=== PATIENT | female | born 1950 | race Hispanic/Latino ===

== ENCOUNTER 2018-12-12 17:10 | Emergency (ER) | payer MEDICARE ==
[~2018-12-12] VITALS: Ht 154.9 cm; Wt 98.9 kg
--- OUTSIDE RECORDS SUMMARY | 2018-12-12 17:12 | XMS REPORT ---
Author Author [facility] Address Unknown Phone Unavailable Care Team Providers Care Director Oncology Name Role Phone Unavailable Unavailable Problems This patient has no known problems. Allergies, Adverse Reactions, Alerts This patient has no known allergies or adverse reactions. Medications This patient has no known medications. Encounters Start Date/Time End Date/Time Encounter Type Admission Type Attending [facility] [place] Facility Care Department Encounter ID 2018-01-07 00:00:00 2018-01-07 00:00:00 Outpatient [facility] [id number] 2017-12-24 00:00:00 2017-12-24 00:00:00 Outpatient [facility] [id number] 2017-12-24 00:00:00 2017-12-24 00:00:00 Outpatient [facility] [id number] 2017-12-01 00:00:00 2017-12-01 00:00:00 Outpatient [facility] [id number] 2017-10-12 10:56:28 2017-10-12 10:56:28 Outpatient [facility] [id number] 2017-10-08 00:00:00 2017-10-08 00:00:00 Outpatient [facility] [id number] 2017-08-27 00:00:00 2017-08-27 00:00:00 Outpatient [facility] [id number] 2017-08-13 13:26:11 2017-08-13 13:26:11 Outpatient [facility] [id number] 2017-07-15 00:00:00 2017-07-15 00:00:00 Outpatient [facility] [id number] 2017-06-30 00:00:00 2017-06-30 00:00:00 Outpatient [facility] [id number] 2017-06-12 09:45:23 2017-06-12 09:45:23 Outpatient [facility] [id number] 2017-06-10 00:00:00 2017-06-10 00:00:00 Outpatient [facility] [id number] 2017-05-20 00:00:00 2017-05-20 00:00:00 Outpatient [facility] [id number] 2017-05-19 00:00:00 2017-05-19 00:00:00 Outpatient [facility] [id number] 2017-05-13 08:43:56 2017-05-13 08:43:56 Outpatient [facility] [id number] 2017-05-13 00:00:00 2017-05-13 00:00:00 Outpatient [facility] [id number] 2017-05-12 10:38:57 2017-05-12 10:38:57 Outpatient [facility] [id number]
[2018-12-12] MEDS ORDERED: ALBUTEROL SULF 0.083% NEB SOLN 3 ML NEB NEB STA (17:34)
[2018-12-12] MEDS ORDERED: IPRATROPIUM BROMIDE 0.02% 2.5 ML NEB NEB STA (17:34)
[2018-12-12] MEDS ORDERED: ACETAMINOPHEN/CODEINE ELIX 120-12 MG/5 ML UDC PO NR (17:45)
[2018-12-12] MEDS ORDERED: DEXAMETHASONE SOD PHOS 10 MG/1 ML VIAL IM NR (18:30)
--- NOTE | 2018-12-12 19:00 | NUR ---
REPORT GIVEN TO LYLY CUMMINGS
--- NOTE | 2018-12-12 19:04 | Diagnostic Imaging Report ---
EXAMINATION: CHEST 2 VIEWS INDICATION: ^ORDER PLACED BY ^[id number] ^[id number] ^Y COMPARISON: None FINDINGS: PA and lateral views TUBES and LINES: None. LUNGS: Lungs are well inflated. Lungs are clear. There is no evidence of pneumonia or pulmonary edema. PLEURA: No pleural effusion or pneumothorax. HEART AND MEDIASTINUM: The cardiomediastinal silhouette is unremarkable. BONES AND SOFT TISSUES: Degenerative changes of the thoracic spine. Soft tissues are unremarkable. UPPER ABDOMEN: No free air under the diaphragm. IMPRESSION: No acute thoracic abnormality. Signed by: Dr. Rosario Mcguire M.D. on 12/12/2018 7:00 PM
== END 2018-12-12 19:42 | disposition home or self-care (01) ==
LOC: ER 17:10
DX: R05 Cough (principal); J20.9 Acute bronchitis, unspecified
CPT/HCPCS: 71046; 94644; 99284; J1100

== ENCOUNTER → 2019-01-19 | Outpatient (CLI) | payer MEDICARE | LOC: MAMMO 12:12 | PROVIDERS: ATTEND Student in an Organized Health Care Education/Training Program | DX: Z12.31 Encounter for screening mammogram for malignant neoplasm of breast (principal) | CPT/HCPCS: 77067 ==

== ENCOUNTER 2020-05-01 13:00 | Emergency (ER) | payer MEDICARE ==
[~2020-05-01] VITALS: Ht 154.9 cm; Wt 98.9 kg
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
--- NOTE | 2020-05-01 13:32 | Emergency Department Note ---
History of Present Illnes History of Present Illness Chief Complaint: General Medicine Complaints History of Present Illness This is a 70 year old female Chief Complaint Comment 70 y/o female presents to ED with c/o trip and fall hitting forehead. Negative LOC. Historian: Patient Arrival Mode: Car Senior Compensation Consultant Required: No Onset (how long ago): minute(s) (30) Location: Head Quality: Dull Radiation: Reports non-radiation Severity: mild Onset quality: sudden Duration (how long): hour(s) Timing of current episode: constant Progression: unchanged Chronicity: new Context: Denies recent illness, Denies recent surgery Relieving factors: none Exacerbating factors: none Associated symptoms: Reports denies other symptoms Treatments prior to arrival: none Past Medical/Family History Physician Review I have reviewed the patient's past medical and family history. Any updates have been documented here. Past Medical History Recent Fever: No Clinical Suspicion of Infectio: No New/Unexplained Change in Ment: No Past Medical History: Hypertension, Diabetes, Depression, Osteoarthritis Past Surgical History: None Social History Physically hurt or threatened: No Other Last Tetanus: UTD Review of Systems Review of Systems Constitutional: Reports as per HPI (Swelling to L forehead) EENTM: Reports no symptoms Cardiovascular: Reports no symptoms Respiratory: Reports no symptoms Gastrointestinal: Reports no symptoms Genitourinary: Reports no symptoms Musculoskeletal: Reports no symptoms Integumentary: Reports no symptoms Neurological: Reports no symptoms Psychological: Reports no symptoms Endocrine: Reports no symptoms Hematological/Lymphatic: Reports no symptoms Physical Exam Related Data Allergies: Coded Allergies: No Known Allergies (Unverified , 12/12/18) Triage Vital Signs Vital Signs Date Time Temp Pulse Resp B/P (MAP) Pulse Ox O2 Delivery O2 Flow Rate FiO2 05/01/20 13:17 98.6 73 18 154/84 98 Room Air Vital signs reviewed: Yes Physical Exam CONSTITUTIONAL Constitutional: Present well-developed, Present well-nourished HENT HENT: Present oropharynx clear/moist, Present nose normal; Absent atraumatic (Sweling to L forehead) HENT L/R: Present left ext ear normal, Present right ext ear normal EYES Eyes: Reports PERRL, Reports conjunctivae normal NECK Neck: Present ROM normal PULMONARY Pulmonary: Present effort normal, Present breath sounds normal CARDIOVASCULAR Cardiovascular: Present regular rhythm, Present heart sounds normal, Present capillary refill normal, Present normal rate GASTROINTESTINAL Abdominal: Present soft, Present nontender, Present bowel sounds normal GENITOURINARY Genitourinary: Present exam deferred SKIN Skin: Present warm, Present dry MUSCULOSKELETAL Musculoskeletal: Present ROM normal, Present other (abrasions to bilateral knees) NEUROLOGICAL Neurological: Present alert, Present oriented x 3, Present no gross motor or sensory deficits PSYCHOLOGICAL Psychological: Present mood/affect normal, Present judgement normal Results Imaging Imaging results reviewed: Yes Assessment & Plan Medical Decision Making MDM 70-year-old female presents for head injury. Patient was walking out of the hospital after a mammogram and had a mechanical fall in which she fell onto her bilateral knees and hit her head. Denies loss of consciousness. Examination shows moderate swelling to the left forehead. She was able to ambulate after the incident. CT head, C-spine and x-rays of the bilateral knees are unremarkable. I discussed results patient and she will follow up with her primary care provider or return to the emergency department for new or worsening symptoms. Patient is appropriate for discharge. tetanus updated. Reassessment Reassessment time: 13:31 Reassessment Well appearing, NAD Assessment & Plan Final Impression: (1) Head injury Depart Disposition: HOME, SELF-CARE Last Vital Signs Date Time Temp Pulse Resp B/P (MAP) Pulse Ox O2 Delivery O2 Flow Rate FiO2 05/01/20 13:17 98.6 73 18 154/84 98 Room Air JULIANA OSMAN MD May 01, 2020 13:32
--- NOTE | 2020-05-01 13:50 | Diagnostic Imaging Report ---
Examination: CT BRAIN WO CONTRAST History:Fall with head injury Comparison studies:None Technique: Axial images were obtained from the skull base to the vertex. Coronal and sagittal images reconstructed from the axial data. Dose modulation, iterative reconstruction, and/or weight based adjustment of the mA/kV was utilized to reduce the radiation dose to as low as reasonably achievable. Intravenous contrast: None Findings: Scalp: Left frontal scalp hematoma. Bones: No fractures, blastic or lytic lesions. Brain sulci: Appropriate for age. Ventricles: Normal in size and configuration. No hydrocephalus. Extra-axial space: No abnormalities. Parenchyma: No masses, hemorrhage, or acute or chronic cortical based vascular insults.. Sellar/suprasellar region: No abnormalities. Craniocervical junction: Patent foramen magnum. No Chiari one malformation. Incidental findings: None. Impression: Despite left frontal scalp hematoma, no underlying calvarial fracture or intracranial hemorrhage. Signed by: Dr. Sapna Hager M.D. on 05/01/2020 2:04 PM
--- NOTE | 2020-05-01 13:56 | Diagnostic Imaging Report ---
Examination: CT CERVICAL SPINE WO CONTRAST HISTORY:Fall with head injury COMPARISON:None. TECHNIQUE: Multidetector helical axial images were obtained without contrast from the foramen magnum to T1. Coronal and sagittal reformatted images were done. Bone and soft tissue windows were evaluated. Dose modulation, iterative reconstruction, and/or weight based adjustment of the mA/kV was utilized to reduce the radiation dose to as low as reasonably achievable. FINDINGS: Alignment:Normal alignment and lordosis. Vertebrae: Normal height and density. No acute fracture, infection or neoplasm. Disc space heights: Normal height. Caliber of spinal canal: Developmentally normal. Posterior fossa and craniocervical junction: Foramen magnum patent. No Chiari 1 malformation. Soft tissues: Atherosclerotic calcification of the bilateral carotid bifurcations. Degenerative changes: C3-C4: Central disc osteophyte protrusion causes mild canal stenosis. No foraminal stenosis. C4-C5: Diffuse disc osteophyte complex. No foraminal or canal stenosis. C5-C6: Diffuse disc osteophyte complex and bilateral uncovertebral arthropathy result in mild bilateral neural foraminal narrowing. No canal stenosis. C6-C7: Diffuse disc osteophyte complex and bilateral uncovertebral arthropathy result in severe bilateral neural foraminal narrowing and mild canal stenosis. Visualized lung apices: No abnormalities. IMPRESSION: No acute abnormalities. Signed by: Dr. Sapna Hager M.D. on 05/01/2020 1:53 PM
--- NOTE | 2020-05-01 14:01 | Diagnostic Imaging Report ---
EXAMINATION: KNEE THREE VIEWS BILATERAL INDICATION: Knee pain, fall COMPARISON: None FINDINGS: AP, lateral and oblique radiographs of both knees were obtained. Right knee: No acute fracture or dislocation. Alignment is anatomic. Moderate to severe patellofemoral compartment predominant tricompartmental degenerative changes with joint space narrowing and bulky osteophyte formation. No substantial joint effusion. Atherosclerotic arterial calcifications. Left knee: No acute fracture or dislocation. Alignment is anatomic. Severe patellofemoral compartment predominant tricompartmental degenerative changes with joint space narrowing and bulky osteophyte formation. No substantial joint effusion. Atherosclerotic arterial calcifications. IMPRESSION: No acute osseous injury. Moderate to severe right and severe left patellofemoral compartment predominant degenerative changes. Signed by: Chris Crain MD on 05/01/2020 1:58 PM
[2020-05-01] MEDS ORDERED: TETANUS/DIPHTHERIA TOX ADULT 0.5 ML SYR IM ONE (14:15)
[2020-05-01] MEDS ORDERED: ACETAMINOPHEN 325 MG TAB PO ONE (14:15)
[2020-05-01 14:54] VITALS: BP 146/98
== END 2020-05-01 15:05 | disposition home or self-care (01) ==
LOC: ER 13:23
DX: S00.83XA Contusion of other part of head, initial encounter (principal); M25.562 Pain in left knee; M25.561 Pain in right knee; W01.0XXA Fall on same level from slipping, tripping and stumbling without subsequent striking against object, initial encounter; Y93.01 Activity, walking, marching and hiking; Y92.238 Other place in hospital as the place of occurrence of the external cause; I10 Essential (primary) hypertension; E11.9 Type 2 diabetes mellitus without complications; F32.9 Major depressive disorder, single episode, unspecified
CPT/HCPCS: 70450; 72125; 90714; 99284

== ENCOUNTER → 2020-05-01 | Outpatient (CLI) | payer MEDICARE | LOC: MAMMO 12:04 | PROVIDERS: ATTEND Student in an Organized Health Care Education/Training Program | DX: Z12.31 Encounter for screening mammogram for malignant neoplasm of breast (principal) | CPT/HCPCS: 77067 ==

== ENCOUNTER 2021-01-11 07:46 | Emergency (ER) | payer MEDICARE ==
[~2021-01-11] VITALS: Ht 160 cm; Wt 117.9 kg
[2021-01-11] MEDS ORDERED: METOPROLOL SUCC50 MG PO (08:27)
[2021-01-11] MEDS ORDERED: LANSOPRAZOLE30 MG (08:27)
[2021-01-11] MEDS ORDERED: LOSARTAN-HCTZ1 EAC2 (08:27)
[2021-01-11] MEDS ORDERED: FAMOTIDINE 20 MG/2 ML VIAL IV STA (08:32)
[2021-01-11] MEDS ORDERED: ONDANSETRON HCL INJ 2MG/ML 2ML 2 MG/ML VIAL IV STA (08:32)
[2021-01-11] MEDS ORDERED: METFORMIN HCL500 MG PO (08:33)
[2021-01-11] MEDS ORDERED: ATORVASTATIN CA20 MG PO (08:33)
[2021-01-11] MEDS ORDERED: TRESIBA FL200 UNIT/1 (08:33)
[2021-01-11] MEDS ORDERED: FARXIGA10 MG (08:36)
[2021-01-11] MEDS ORDERED: KETOROLAC TROMETHAMINE 30 MG/ML VIAL IV ONE (08:45)
[2021-01-11] MEDS ORDERED: SODIUM CHLORIDE 0.9% 1000ML 1,000 ML IV SCH (08:45)
[2021-01-11] MEDS ORDERED: SODIUM CHLORIDE 0.9% 50ML 50 ML ONE (09:04)
[2021-01-11] MEDS ORDERED: IOPAMIDOL 370 MG/ML 200 ML INFUS..BTL INJ ONE (09:04)
[2021-01-11] MEDS ORDERED: CEFTRIAXONE 1 GM VIAL IV ONE (11:15)
[2021-01-11] MEDS ORDERED: CEFTRIAXONE 500 MG VIAL ONE (11:23)
[2021-01-11] MEDS ORDERED: CEFTRIAXONE 1 GM VIAL ONE (11:24)
[2021-01-11] MEDS ORDERED: MACROBID 100 M100 MG PO (11:27)
[2021-01-11] MEDS ORDERED: LEVSIN0.125 MG PO (11:28)
[2021-01-11] MEDS ORDERED: CEFDINIR300 MG PO (11:29)
[2021-01-11] MEDS ORDERED: CEFTRIAXONE 1 GM in SODIUM CHLORIDE 0.9% 50ML 50 ML IV ONE (11:30)
[2021-01-11 11:49] LABS: CREATINE KINASE 40 IU/L (29-168)
[2021-01-11] MEDS ORDERED: ONDANSETRON ODT4 MG PO (12:05)
[2021-01-11 12:15] VITALS: BP 170/79
== END 2021-01-11 12:18 | disposition home or self-care (01) ==
LOC: FSED 08:23
DX: R10.10 Upper abdominal pain, unspecified (principal); R11.2 Nausea with vomiting, unspecified; N39.0 Urinary tract infection, site not specified; E11.65 Type 2 diabetes mellitus with hyperglycemia; K76.0 Fatty (change of) liver, not elsewhere classified; I10 Essential (primary) hypertension; E78.5 Hyperlipidemia, unspecified; F32.9 Major depressive disorder, single episode, unspecified
CPT/HCPCS: 36415; 74177; 80048; 80076; 81003; 82550; 82553; 84484; 85025; 93005; 96374; 96375; 96376; 99284; J0696; J1885; J2405; J7030; Q9967

== ENCOUNTER → 2021-05-09 | Outpatient (CLI) | payer MEDICARE ==
[~2021-05-09] MED LIST: ATORVASTATIN CA20 MG PO; CEFDINIR300 MG PO; FARXIGA10 MG; LANSOPRAZOLE30 MG; LEVSIN0.125 MG PO; LOSARTAN-HCTZ1 EAC2; MACROBID 100 M100 MG PO; METFORMIN HCL500 MG PO; METOPROLOL SUCC50 MG PO; ONDANSETRON ODT4 MG PO; TRESIBA FL200 UNIT/1
== END ==
LOC: MAMMO 13:23
PROVIDERS: ATTEND Student in an Organized Health Care Education/Training Program
DX: Z12.31 Encounter for screening mammogram for malignant neoplasm of breast (principal)
CPT/HCPCS: 77067